=== PATIENT | male | born 1980 | race Caucasian/White ===

== ENCOUNTER 2018-04-15 13:26 | Emergency (ER) | payer OTHER ==
[~2018-04-15] VITALS: Ht 167.6 cm; Wt 73.5 kg
[2018-04-15 13:55] VITALS: BP 118/60
--- NOTE | 2018-04-15 13:56 | NUR ---
AMB. TO BED #8
--- NOTE | 2018-04-15 14:00 | NUR ---
PATIENT PRESENTS TO THE ED WITH C/O COUGH AND CONGESTION X2DAYS. NO C/O PAIN AT THIS TIME. PT ON ROOM AIR NO SOB, NO S/S OF DISTRESS NOTED AT THIS TIME. BED LOWERED WITH SIDE RAILS UP. WILL CONTINUE TO MONITOR
[2018-04-15] MEDS ORDERED: diphenhydrAMINE 50 MG/ML VIAL IM ONE (15:10)
[2018-04-15] MEDS ORDERED: KETOROLAC 60 MG/2 ML VIAL IM ONE (15:10)
[2018-04-15] MEDS ORDERED: DEXAMETHASONE 10 MG/ML VIAL IM ONE (16:10)
[2018-04-15] MEDS ORDERED: CLINDAMYCIN 600 MG/4 ML VIAL IM ONE (16:10)
[2018-04-15 17:50] VITALS: BP 135/79
--- NOTE | 2018-04-15 17:54 | NUR ---
Patient discharged with v/s stable. Written and verbal after care instructions given and explained. Patient alert, oriented and verbalized understanding of instructions. Ambulatory with steady gait. All questions addressed prior to discharge. ID band removed. Patient advised to follow up with PMD. Rx of AZYTHROMYCIN, MOTRIN, PROMETHAZINE given. Patient educated on indication of medication including possible reaction and side effects. Opportunity to ask questions provided and answered.
== END 2018-04-15 17:54 | disposition home or self-care (01) ==
LOC: MED 13:26
DX: J01.90 Acute sinusitis, unspecified (principal); J40 Bronchitis, not specified as acute or chronic; Z88.1 Allergy status to other antibiotic agents
CPT/HCPCS: 87804; 96372; 99283; J1100; J1200; J1885; J3490; 36415

== ENCOUNTER 2018-07-24 21:06 | Emergency (ER) | payer OTHER ==
[~2018-07-24] VITALS: Ht 167.6 cm; Wt 84.4 kg
[2018-07-24 21:20] VITALS: BP 127/79
--- NOTE | 2018-07-24 21:24 | NUR ---
[facility]
--- NOTE | 2018-07-24 21:45 | NUR ---
PATIENT AMBULATED TO ER BED 7
--- NOTE | 2018-07-24 21:53 | NUR ---
Dr. Reno examining patient.
[2018-07-24] MEDS ORDERED: SULFAMETH/TRIMETH DS 800/160MG 1 TAB PO ONE (22:00)
--- NOTE | 2018-07-24 22:00 | NUR ---
PT C/O ABSCESS TODAY. PT STATED HE HAS HX OF MRSA AND STAFF INFECTIONS FLUID FILLED BUMP IN LEFT KNEE, MILD REDNESS AND SWELLING. PT STATES 0/10 PAIN AT THIS TIME. PT ACTING APPROPRIATLY, SPEAKING IN CLEAR AND COMPLETE SENTENECES. ALLERGIES TO [facility] HX: ANKLE SURGERY
[2018-07-24 22:25] VITALS: BP 127/79
--- NOTE | 2018-07-24 22:25 | NUR ---
Patient discharged with v/s stable. Written and verbal after care instructions given and explained. Patient alert, oriented and verbalized understanding of instructions. Ambulatory with steady gait. All questions addressed prior to discharge. ID band removed. Patient advised to follow up with PMD. Rx of Bactrim DS given. Patient educated on indication of medication including possible reaction and side effects. Opportunity to ask questions provided and answered.
== END 2018-07-24 22:25 | disposition home or self-care (01) ==
LOC: MED 21:06
DX: S80.222A Blister (nonthermal), left knee, initial encounter (principal); L03.116 Cellulitis of left lower limb; Z88.1 Allergy status to other antibiotic agents; X58.XXXA Exposure to other specified factors, initial encounter; Y93.89 Activity, other specified; Y92.89 Other specified places as the place of occurrence of the external cause; Y99.8 Other external cause status
CPT/HCPCS: 99283